=== PATIENT | male | born 1960 | race Two or more races ===

== ENCOUNTER → 2022-06-01 09:47 | Outpatient (BNVA) | payer OTHER, SELFPAY | PROVIDERS: PCP Pediatrics; Visit Provider Student in an Organized Health Care Education/Training Program | DX: M79.7 Fibromyalgia (principal); M21.70 Unequal limb length (acquired), unspecified site; M70.22 Olecranon bursitis, left elbow; M70.21 Olecranon bursitis, right elbow; F41.9 Anxiety disorder, unspecified | CPT/HCPCS: 99202 ==